=== PATIENT | female | born 1945 | race Caucasian/White ===

== ENCOUNTER → 2018-12-11 | Outpatient (CLI) | payer OTHER ==
[~2018-12-11] MED LIST: ALPRAZOLAM ER1 MG PO; ASPIRIN EC81 M1 PO; CARISOPRODOL 3350 M1 PO; CIPROFLOXACIN500 M1 PO; CO Q10200 MG PO; CORAL CALCIUM1 EAC2 PO; COZAAR 25 MG TA25 M1 PO; CRANBERRY EXTRAC1 GM MC; CYMBALTA60 MG PO; FOSAMAX 70 MG T70 M1 PO; IBUPROFEN 800800 M1 PO; LISINOPRIL40 MG PO; NEURONTIN 300M300 M2 PO; NITROFURANTOIN100 MG PO; NORVASC2.5 MG PO; PRAVACHOL80 MG PO; PRENATAL; PREVACID15 MG PO; SENOKOT-S1 TA2 PO; SLOW-MAG64 MG PO; SUPER B COMPLE1 EAC2 PO; TRIGLIDE160 M1 PO; VICODIN 5-5001 EACH PO; VITAMIN D-32000 UNIT PO; VIVELLE-DOT1 EAC1 TD
== END ==
LOC: M.RAD 12-09 11:50
DX: Z12.31 Encounter for screening mammogram for malignant neoplasm of breast (principal)

== ENCOUNTER → 2018-12-22 | Outpatient (CLI) | payer OTHER | LOC: M.LAB 05:13 | DX: E87.6 Hypokalemia (principal) ==

== ENCOUNTER → 2019-03-15 | Outpatient (CLI) | payer OTHER | LOC: M.LAB 05:32 | DX: E87.6 Hypokalemia (principal) ==

== ENCOUNTER → 2019-12-01 | Outpatient (CLI) | payer OTHER | LOC: M.ULTRA 11-25 11:30 | DX: Z76.89 Persons encountering health services in other specified circumstances (principal) ==